=== PATIENT | male | born 1995 | race Caucasian/White ===

== ENCOUNTER 2021-12-10 11:50 | Emergency (ER) | payer MEDICAID ==
[~2021-12-10] VITALS: Ht 180.3 cm; Wt 63.0 kg
[~2021-12-10 11:50] MED LIST: MOT200T PO; NO HOME MEDS
[2021-12-10 12:12] VITALS: BP 134/88
[2021-12-10] MEDS ORDERED: PENI250T2 PO (14:07)
[2021-12-10] MEDS ORDERED: NAPR-56 PO (14:07)
== END 2021-12-10 14:16 | disposition home or self-care (01) ==
LOC: ER 11:50
DX: K08.89 Other specified disorders of teeth and supporting structures (principal); K02.9 Dental caries, unspecified; F17.200 Nicotine dependence, unspecified, uncomplicated; F12.90 Cannabis use, unspecified, uncomplicated; Z72.89 Other problems related to lifestyle; Z79.2 Long term (current) use of antibiotics; Z79.899 Other long term (current) drug therapy
CPT/HCPCS: 99283